=== PATIENT | female | born 1985 | race African-American/Black ===

== ENCOUNTER 2016-06-10 08:13 | Emergency (ER) | payer MEDICAID ==
[~2016-06-10] VITALS: Ht 162.6 cm; Wt 56.8 kg
[~2016-06-10 08:13] MED LIST: ADDERALL30 MG PO; ALBUTEROL0.09 MG/A1 IH; AMOXICILLIN 50500 MG PO; ASPIRIN 81M81 MG/TA2 PO; CEFTIN 250250 MG/TAB PO; CEPHALEXIN500 M1 PO; DOXYCYCLINE 10100 MG PO; FLAGYL500 MG PO; LORTAB 5/500 501 TAB PO; MACROBID100 MG PO; METRONIDAZOLE500 MG PO; NO HOME MEDICATIONS; NORCO 325 MG-51 TAB PO; NORCO 325 MG-7.1 TAB PO; PEN-VEE K500 MG PO; PEPCID 20MG TAB20 MG PO; PHENERGAN 25 TA25 MG PO; PRENATABS CBF1 TAB PO; PRENATAL1 TA1 PO; PROCARDIA20 MG PO; PYRIDIUM200 M1 PO; SLOW FE45 MG PO; TRAZADONE HYDR100 MG PO; TRAZODONE150 MG PO; ULTRAM 50MG TAB50 MG PO; VICODIN 5/5001 UDTAB PO; ZITHROMAX Z PA250 MG PO; ZOFRAN 4MG T4 MG/TAB PO; ZOFRAN8 MG PO
[2016-06-10 08:15] VITALS: BP 151/95; TEMP 98.5
[2016-06-10] MEDS ORDERED: ZOLOFT 25MG25 MG PO (08:17)
[2016-06-10] MEDS ORDERED: DESYREL 50MG50 MG PO (08:18)
[2016-06-10] MEDS ORDERED: AMOXICILLIN 50500 MG PO (08:33)
[2016-06-10] MEDS ORDERED: NORCO 325 MG-51 TAB PO (08:33)
[2016-06-10 08:44] VITALS: PULSE 88
== END 2016-06-10 08:40 | disposition home or self-care (01) ==
LOC: COL.ER 08:13
DX: K03.81 Cracked tooth (principal); K08.89 Other specified disorders of teeth and supporting structures; F17.210 Nicotine dependence, cigarettes, uncomplicated; F32.9 Major depressive disorder, single episode, unspecified; F41.9 Anxiety disorder, unspecified

== ENCOUNTER 2016-07-23 22:10 | Emergency (ER) | payer MEDICAID ==
[~2016-07-23] VITALS: Ht 162.6 cm; Wt 56.8 kg
[~2016-07-23 22:10] MED LIST changes: +DESYREL 50MG50 MG PO; +ZOLOFT 25MG25 MG PO
[2016-07-23 22:20] VITALS: BP 141/90; PULSE 84; TEMP 98.9
== END 2016-07-24 00:10 | disposition home or self-care (01) ==
LOC: COL.ER 22:10
DX: S69.81XA Other specified injuries of right wrist, hand and finger(s), initial encounter (principal); S90.512A Abrasion, left ankle, initial encounter; S50.311A Abrasion of right elbow, initial encounter; W01.198A Fall on same level from slipping, tripping and stumbling with subsequent striking against other object, initial encounter; Y92.414 Local residential or business street as the place of occurrence of the external cause; Y99.9 Unspecified external cause status

== ENCOUNTER 2016-10-09 17:52 | Emergency (ER) | payer MEDICAID ==
[~2016-10-09] VITALS: Ht 162.6 cm; Wt 60.9 kg
[2016-10-09 17:55] VITALS: BP 144/78; TEMP 98.2
[2016-10-09 19:15] VITALS: PULSE 75
== END 2016-10-09 19:16 | disposition home or self-care (01) ==
LOC: COL.ER 17:52
DX: S40.861A Insect bite (nonvenomous) of right upper arm, initial encounter (principal); F17.210 Nicotine dependence, cigarettes, uncomplicated; Z98.51 Tubal ligation status; W57.XXXA Bitten or stung by nonvenomous insect and other nonvenomous arthropods, initial encounter

== ENCOUNTER 2017-08-10 11:08 | Emergency (ER) | payer MEDICAID ==
[2017-08-10 11:25] VITALS: BP 120/73; PULSE 61; TEMP 97.5
[2017-08-10] MEDS ORDERED: ULTRAM 50MG TAB50 MG PO (12:11)
== END 2017-08-10 12:25 | disposition home or self-care (01) ==
LOC: COL.ER 11:08
DX: K04.01 Reversible pulpitis (principal)

== ENCOUNTER 2018-01-02 15:14 | Emergency (ER) | payer MEDICAID ==
[~2018-01-02] VITALS: Ht 162.6 cm; Wt 63.6 kg
[2018-01-02 15:21] VITALS: BP 171/87; PULSE 87; TEMP 97.6
[2018-01-02] MEDS ORDERED: TYLENOL 500MG500 MG PO (16:28)
== END 2018-01-02 17:10 | disposition left against medical advice (07) ==
LOC: COL.ER 15:14
DX: K03.81 Cracked tooth (principal)

== ENCOUNTER → 2018-05-23 | Outpatient (CLI) | payer MEDICAID ==
[~2018-05-23] MED LIST changes: +TYLENOL 500MG500 MG PO
== END ==
LOC: COL.RAD 10:49
DX: R05 Cough (principal)

== ENCOUNTER → 2019-05-15 | Outpatient (CLI) | payer OTHER ==
[~2019-05-15] MED LIST changes: +FLEXERIL 1010 MG/TAB PO; +LIDODERM 5% PATC1 EA TP
== END ==
LOC: COL.RAD 12:50
DX: M41.84 Other forms of scoliosis, thoracic region (principal); V89.2XXS Person injured in unspecified motor-vehicle accident, traffic, sequela

== ENCOUNTER 2020-06-10 18:48 | Emergency (ER) | payer OTHER ==
[~2020-06-10] VITALS: Ht 162.6 cm; Wt 62.3 kg
[2020-06-10 19:11] VITALS: TEMP 98.1
[2020-06-10] MEDS ORDERED: FLEXERIL 1010 MG/TAB PO (20:19)
[2020-06-10 20:28] VITALS: BP 128/70; PULSE 72
== END 2020-06-10 20:45 | disposition home or self-care (01) ==
LOC: COL.ER 18:48
DX: M54.5 Low back pain (principal); G89.29 Other chronic pain
CPT/HCPCS: J1885